=== PATIENT | male | born 1980 | race Caucasian/White ===

== ENCOUNTER 2017-03-25 18:35 | Emergency (ER) | payer OTHER ==
[~2017-03-25] VITALS: Ht 175.2 cm; Wt 104.3 kg
[~2017-03-25 18:35] MED LIST: AMOXICILLIN500 MG PO; CATAFLAM50 MG PO; CLARITIN10 MG PO; DAYPRO600 M1 PO; GABAPENTIN800 MG PO; HYDROCODONE BIT1 T11 PO; MOTRIN800 MG PO; NEURONTIN300 MG PO; NEURONTIN600 MG PO; NEURONTIN800 MG PO; NKHM; PENICILLIN VK500 MG PO; Peridex 473 ML473 ML PO; ROBAXIN750 MG PO; TRIMOX500 MG PO; ULTRAM50 MG PO; VICODIN 500 MG-1 TAB PO; VICODIN ES 7501 TAB PO; VOLTAREN50 M1 PO; XARE15TA PO
== END 2017-03-25 20:55 | disposition home or self-care (01) ==
LOC: ED 18:35
DX: T40.601A Poisoning by unspecified narcotics, accidental (unintentional), initial encounter (principal); F17.200 Nicotine dependence, unspecified, uncomplicated; Z88.8 Allergy status to other drugs, medicaments and biological substances; Y92.9 Unspecified place or not applicable

== ENCOUNTER 2019-08-14 12:31 | Emergency (ER) | payer OTHER ==
[~2019-08-14] VITALS: Ht 182.8 cm; Wt 124.7 kg
[2019-08-14 13:30] LABS: BASO % 0.3 % (0.0-1.0); EOS # 0.2 10*3/uL (0.0-0.4); EOS % 1.6 % (1.0-4.0); HEMATOCRIT 39.5 % (42.0-52.0); HEMOGLOBIN 13.3 g/dl (14.0-18.0); LYMPH # 2.9 10*3/uL (1.3-4.4); LYMPH % 26.9 % (27.0-41.0); MEAN CELL VOLUME 95.9 fl (80.0-94.0); MEAN CORPUSCULAR HGB 32.3 pg (27.0-31.0); MEAN CORPUSCULAR HGB CONC 33.7 g/dl (33.0-37.0); MEAN PLATELET VOLUME 9.1 fl (9.6-12.3); MONO # 1.1 10*3/uL (0.1-1.0); NEUT # 6.6 10*3/uL (2.3-7.9); NEUT % 60.8 % (47.0-73.0); PLATELET COUNT AUTOMATED 220 10*3/uL (130-400); RED BLOOD COUNT 4.12 10*6/uL (4.50-5.90); RED CELL DISTRI WIDTH 12.7 % (0-14.5); WHITE BLOOD COUNT 10.9 10*3/uL (4.8-10.8)
[2019-08-14 13:43] LABS: ALKALINE PHOSPHATASE 98 U/L (45-117); BUN 20 mg/dl (7-24); CHLORIDE 105 mmol/L (98-107); CREATININE 1.25 mg/dL (0.70-1.30); POTASSIUM 3.8 mmol/L (3.5-5.1); SGOT/AST 74 IU/L (3-35); SGPT/ALT 100 U/L (12-78); SODIUM 136 mmol/L (136-145); TOTAL PROTEIN 8.4 gm/dL (6.4-8.2)
[2019-08-14 13:52] LABS: INTERNATIONAL NORM RATIO 0.9 (2.0-3.5)
== END 2019-08-14 14:38 | disposition home or self-care (01) ==
LOC: ED 12:31
PROVIDERS: Nurse Practitioner Family
DX: M79.604 Pain in right leg (principal); M79.621 Pain in right upper arm; M79.89 Other specified soft tissue disorders; F17.200 Nicotine dependence, unspecified, uncomplicated; Z86.718 Personal history of other venous thrombosis and embolism; Z88.8 Allergy status to other drugs, medicaments and biological substances; Z79.899 Other long term (current) drug therapy

== ENCOUNTER 2019-08-17 07:08 | Emergency (ER) | payer OTHER ==
[~2019-08-17] VITALS: Ht 182.8 cm; Wt 124.7 kg
[2019-08-17] MEDS ORDERED: Motrin,Rufen800 MG PO (09:05)
== END 2019-08-17 09:13 | disposition home or self-care (01) ==
LOC: ED 07:08
DX: S93.401A Sprain of unspecified ligament of right ankle, initial encounter (principal); T40.1X1A Poisoning by heroin, accidental (unintentional), initial encounter; G89.29 Other chronic pain; F12.10 Cannabis abuse, uncomplicated; F11.10 Opioid abuse, uncomplicated; F17.200 Nicotine dependence, unspecified, uncomplicated; Z88.8 Allergy status to other drugs, medicaments and biological substances; Z79.899 Other long term (current) drug therapy; X58.XXXA Exposure to other specified factors, initial encounter; Y93.89 Activity, other specified; Y92.098 Other place in other non-institutional residence as the place of occurrence of the external cause; Y99.8 Other external cause status

== ENCOUNTER → 2024-01-09 | Outpatient (CLI) | payer MEDICAID ==
[~2024-01-09] MED LIST changes: +Motrin,Rufen800 MG PO
[2024-01-09 09:43] LABS: BASO # 0.1 10*3/uL (0.0-0.1); BASO % 0.6 % (0.0-1.0); EOS # 0.6 10*3/uL (0.0-0.4); EOS % 7.2 % (1.0-4.0); HEMATOCRIT 43.4 % (42.0-52.0); LYMPH # 2.6 10*3/uL (1.3-4.4); LYMPH % 32.7 % (27.0-41.0); MEAN CELL VOLUME 94.6 fl (80.0-94.0); MEAN CORPUSCULAR HGB 30.9 pg (27.0-31.0); MEAN CORPUSCULAR HGB CONC 32.7 g/dl (33.0-37.0); MEAN PLATELET VOLUME 9.5 fl (9.6-12.3); MONO # 0.6 10*3/uL (0.1-1.0); MONO % 7.7 % (3.0-9.0); NEUT # 4.1 10*3/uL (2.3-7.9); NEUT % 51.4 % (47.0-73.0); PLATELET COUNT AUTOMATED 235 10*3/uL (130-400); RED BLOOD COUNT 4.59 10*6/uL (4.50-5.90); RED CELL DISTRI WIDTH 12.4 % (0-14.5)
[2024-01-09 10:12] LABS: ALKALINE PHOSPHATASE 98 U/L (46-116); BUN 17 mg/dl (9-23); CHLORIDE 105 mmol/L (98-107); CHOLESTEROL 164 mg/dL (<200); LDL CHOLESTEROL 110 mg/dL (9-159); POTASSIUM 3.9 mmol/L (3.4-5.1); SGPT/ALT 98 U/L (5-49); TOTAL PROTEIN 8.2 gm/dL (6.0-8.0); TRIGLYCERIDES 84 mg/dl (<150)
== END | disposition home or self-care (01) ==
LOC: LAB 09:09
PROVIDERS: ATTEND Nurse Practitioner Family
DX: Z01.89 Encounter for other specified special examinations (principal); M51.36 Other intervertebral disc degeneration, lumbar region; M25.78 Osteophyte, vertebrae; M48.061 Spinal stenosis, lumbar region without neurogenic claudication; M79.661 Pain in right lower leg

== ENCOUNTER 2024-03-27 15:14 | Emergency (ER) | payer MEDICAID ==
[~2024-03-27] VITALS: Ht 182.8 cm; Wt 145.1 kg
[2024-03-27] MEDS ORDERED: Ketorolac Tromethamine 30 MG/ML VIAL IM ONE (15:50)
[2024-03-27] MEDS ORDERED: NAPROSYN500 MG PO (15:51)
[2024-03-27] MEDS ORDERED: CLINDAMYCIN HC300 MG PO (15:51)
== END 2024-03-27 16:04 | disposition home or self-care (01) ==
LOC: ED 15:14
DX: K02.9 Dental caries, unspecified (principal); F14.10 Cocaine abuse, uncomplicated; F17.200 Nicotine dependence, unspecified, uncomplicated; F11.10 Opioid abuse, uncomplicated; Z88.8 Allergy status to other drugs, medicaments and biological substances; Z98.890 Other specified postprocedural states

== ENCOUNTER → 2024-05-12 | Outpatient (CLI) | payer MEDICAID ==
[~2024-05-12] MED LIST changes: +CLINDAMYCIN HC300 MG PO; +NAPROSYN500 MG PO
== END | disposition home or self-care (01) ==
LOC: US 13:20
PROVIDERS: ATTEND Nurse Practitioner Family
DX: M79.661 Pain in right lower leg (principal); Z72.0 Tobacco use; Z86.718 Personal history of other venous thrombosis and embolism

== ENCOUNTER 2025-02-05 20:47 | Emergency (ER) | payer MEDICAID ==
[~2025-02-05] VITALS: Ht 182.8 cm; Wt 140.6 kg
[2025-02-05] MEDS ORDERED: SILDENAFIL CITR25 MG PO (21:18)
[2025-02-05] MEDS ORDERED: ADDERALL 10 MG10 MG PO (21:18)
[2025-02-05] MEDS ORDERED: VARDENAFIL HCL PO (21:18)
[2025-02-05] MEDS ORDERED: LEXAPRO20 MG PO (21:19)
[2025-02-05] MEDS ORDERED: ADDERALL XR 3030 MG PO (21:19)
[2025-02-05] MEDS ORDERED: DEXTROAMPH SACC10 M1 PO (21:19)
[2025-02-05] MEDS ORDERED: ESCITALOPRAM OX20 MG PO (21:19)
[2025-02-05] MEDS ORDERED: BUPRENORPHINE HY8 MG SL (21:20)
[2025-02-05] MEDS ORDERED: Buprenorphine Hydrochloride 2 MG TAB SL ONE (21:20)
[2025-02-05] MEDS ORDERED: MIXED AMPHETAMI30 MG PO (21:20)
== END 2025-02-05 21:43 | disposition home or self-care (01) ==
LOC: ED 20:47
DX: F14.10 Cocaine abuse, uncomplicated (principal); F11.10 Opioid abuse, uncomplicated; F17.200 Nicotine dependence, unspecified, uncomplicated; Z76.0 Encounter for issue of repeat prescription; Z88.8 Allergy status to other drugs, medicaments and biological substances; Z79.899 Other long term (current) drug therapy; Z98.890 Other specified postprocedural states; Z86.711 Personal history of pulmonary embolism